=== PATIENT | male | born 2000 | race Caucasian/White ===

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

== ENCOUNTER 2021-12-23 08:09 | Emergency (ER) | payer OTHER, SELFPAY ==
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
[2021-12-23] MEDS ORDERED: LEVALBUTEROL 1.25 MG/3 ML NEB ONE (08:26)
[2021-12-23] MEDS ORDERED: DIPHENHYDRAMINE 50 MG/ML VIAL ONE (08:26)
[2021-12-23] MEDS ORDERED: NA CHLORIDE 0.9% 1,000 ML ONE (08:26)
[2021-12-23] MEDS ORDERED: FAMOTIDINE 20 MG/2 ML VIAL IV ONE (08:26)
[2021-12-23] MEDS ORDERED: METHYLPREDNISOLONE 125 MG INJ ONE (08:26)
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
--- NOTE | 2021-12-23 10:15 | EDPHYS ---
Physician Documentation [facility] Name: Mir Cardoza Jr Age: 21 yrs Sex: Male : 2000 Arrival Date: 12/23/2021 Time: 08:11 Bed 4 Private MD: ED Physician Mac Tanner HPI: 12/23 08:20 This 21 yrs old Male presents to ER via Unassigned with complaints of Bee Sting. cp 08:20 The patient presents with localized swelling, tightness of throat. Onset: The cp symptoms/episode began/occurred just prior to arrival. 08:20 Patient reports multiple wasp stings to left arm. Patient complaining of shortness of cp breath, tightness of throat. Took 50 mg of benadryl ACTUARY. Historical: - Allergies: 08:23 NKA; jl7 - Home Meds: 08:23 None [Active]; jl7 - PMHx: 08:23 Asthma; jl7 - PSHx: 08:23 None; jl7 - Immunization history:: Client reports having NOT received the Covid vaccine. - Social history:: Smoking status: Patient denies any tobacco usage or history of. ROS: 08:25 Constitutional: Negative for body aches, chills, fever, poor PO intake. cp 08:25 ENT: Negative for drainage from ear(s), ear pain, sore throat, difficulty handling cp secretions. 08:25 Cardiovascular: Negative for chest pain, edema, palpitations. 08:25 Respiratory: Positive for shortness of breath, at rest. 08:25 Abdomen/GI: Negative for abdominal pain, vomiting, diarrhea, constipation. 08:25 Neuro: Negative for altered mental status, headache, weakness. 08:25 Eyes: Negative for injury, pain, redness, and discharge. cp 08:25 All other systems are negative. cp Exam: 08:30 Constitutional: The patient appears in no acute distress, alert, awake, non-toxic, well cp developed, well nourished. 08:30 Head/Face: Normocephalic, atraumatic. cp 08:30 Eyes: Periorbital structures: appear normal, Conjunctiva: normal, no exudate, no injection, Sclera: no appreciated abnormality, Lids and lashes: appear normal, bilaterally. 08:30 ENT: External ear(s): are unremarkable, Nose: is normal, Mouth: Lips: moist, Oral mucosa: pink and intact, moist, Posterior pharynx: Airway: no evidence of obstruction, patent, swelling, is not appreciated, erythema, is not appreciated. 08:30 Neck: ROM/movement: is normal, is supple, without pain, no range of motions limitations. 08:30 Chest/axilla: Inspection: normal. 08:30 Cardiovascular: Rate: tachycardic, Rhythm: regular. 08:30 Respiratory: the patient does not display signs of respiratory distress, Respirations: labored breathing, is not present, shallow respirations, that is mild, Breath sounds: are clear throughout, no decreased breath sounds, no stridor, no wheezing. 08:30 Abdomen/GI: Inspection: abdomen appears normal, Palpation: abdomen is soft and non-tender, in all quadrants. 08:30 Musculoskeletal/extremity: Extremities: noted in the left arm: mild swelling noted. Vital Signs: 08:21 BP 114 / 70; Pulse 118; Resp 20; Pulse Ox 94% on R/A; Weight 81.65 kg; Height 6 ft. 2 jl7 in. (187.96 cm); 08:33 BP 109 / 66; Pulse 85; Resp 18; Pulse Ox 99% on Nebulizer Mask; ph 10:22 BP 98 / 56; Pulse 83; Resp 17; Pulse Ox 99% ; ll1 08:21 Body Mass Index 23.11 (81.65 kg, 187.96 cm) jl7 MDM: 08:20 Patient medically screened. cp 08:30 Differential diagnosis: anaphylaxis, angioedema, urticaria. cp 08:42 ED course: Patient reports symptoms improving. cp 10:11 Data reviewed: vital signs, nurses notes. Data interpreted: computer clerk: rate is 99 cp beats/min, rhythm is normal sinus rhythm, Interpretation: normal rate, normal rhythm, Pulse oximetry: on room air is 95 %. Interpretation: acceptable, Plan: O2 by NC applied. Response to treatment: the patient's symptoms have markedly improved after treatment. 08 08:20 Order name: IV; Complete Time: 08:30 cp Administered Medications: 08:30 Drug: SOLU-Medrol (methylPrednisoLONE) 125 mg Route: IVP; Site: right antecubital; ph 10:24 Follow up: Response: No adverse reaction ll1 08:30 Drug: Pepcid (famotidine) 20 mg Route: IVP; Site: right antecubital; ph 10:24 Follow up: Response: No adverse reaction ll1 08:30 Drug: NS 0.9% 1000 ml Route: IV; Rate: 1 bolus; Site: right antecubital; ph 10:24 Follow up: Response: No adverse reaction; IV Status: Completed infusion; IV Intake: ll1 1000ml 08:30 Drug: Xopenex (levalbuterol) (3) 1.25 mg Route: Inhalation; ph 10:24 Follow up: Response: No adverse reaction ll1 08:31 Drug: Benadryl (diphenhydrAMINE) 25 mg Route: IVP; Site: right antecubital; ph 10:23 Follow up: Response: No adverse reaction ll1 Disposition: 15:30 Co-signature as Attending Physician, Mac Tanner MD. rn Disposition Summary: 12/23/21 10:14 Discharge Ordered Location: Home cp Problem: new cp Symptoms: have improved cp Condition: Stable cp Diagnosis - Insect allergy status cp Followup: cp - With: Private Physician - When: 1 - 2 days - Reason: Recheck today's complaints Discharge Instructions: - Discharge Summary Sheet cp - Bee, Wasp, or Hornet Sting, Adult cp Forms: - Medication Reconciliation Form cp - Thank You Letter cp - Antibiotic Education cp - Prescription Opioid Use cp Prescriptions: - Prednisone 20 mg Oral Tablet - take 2 tablets by ORAL route once daily for 5 days then take 1 tablet daily for cp 3 days, then 1/2 tablet daily for 2 days; 14 tablet; Refills: 0, Product Selection Permitted - Pepcid 20 mg Oral Tablet - take 1 tablet by ORAL route every 12 hours for 10 days; 20 tablet; Refills: 0, cp Product Selection Permitted - epinephrine 0.3 mg/0.3 mL Injection auto-injector - inject 0.3 milliliter by INTRAMUSCULAR route as directed as needed for cp anaphylaxis; 2 milliliter; Refills: 0, Product Selection Permitted Signatures: Mac Tanner MD MD rn Hall, Patricia, RN RN ph Page, Corey, PA PA cp Leal, Jahala, RN RN Juany Martínez RN ll1 Corrections: (The following items were deleted from the chart) 08: 08:21 This 21 yrs old Male presents to ER via Unassigned with complaints of Bee Sting. cp cp
[2021-12-23 11:31] VITALS: O2SAT 99
[2021-12-23 11:39] VITALS: BP 98/56
== END 2021-12-23 10:28 | disposition home or self-care (01) ==
LOC: ER 08:09
DX: R22.9 Localized swelling, mass and lump, unspecified (principal); R06.02 Shortness of breath; Z91.030 Bee allergy status
CPT/HCPCS: 96361; 96374; 96375; 99284; J1200; J2930; J7030